=== PATIENT | male | born 1970 | race Hispanic/Latino ===

== ENCOUNTER 2021-09-13 22:40 | Emergency (ER) | payer OTHER ==
[2021-09-14 13:24] LABS: SARS-CoV-2 PCR by NAA DETECTED (NotDetected)
== END 2021-09-14 00:05 | disposition home or self-care (01) ==
LOC: ERS 22:40
DX: U07.1 COVID-19 (principal); I10 Essential (primary) hypertension; Z87.891 Personal history of nicotine dependence; Z79.899 Other long term (current) drug therapy
CPT/HCPCS: 87081; 87430; 99284; U0003; U0005